=== PATIENT | male | born 1965 | race Caucasian/White ===

== ENCOUNTER 2020-08-28 09:14 | Outpatient (REF) | payer OTHER, SELFPAY ==
[2020-08-28 10:12] LABS: MANUAL DIFF FLAG NO
[2020-08-28 10:20] LABS: Basophils Percent Auto 0.6 % (0-2); Eosinophils Absolute Auto 0.2 X10*3/uL (0.0-0.4); Eosinophils Percent Auto 2.5 % (0-4); Hematocrit 44.1 % (42-52); Hemoglobin 14.6 g/dl (14.0-18.0); Imm Gran Abs Auto 0.02 X10*3/uL (0.00-0.03); Imm Gran Pct Auto 0.3 % (0.0-0.4); Lymphocytes Absolute Auto 1.7 X10*3/uL (1.2-4.9); Lymphocytes Percent Auto 26.6 % (20-40); Mean Corpuscular HGB Conc 33.1 g/dl (31.0-36.0); Mean Corpuscular Hemoglobin 30.2 pg (27.0-33.0); Mean Corpuscular Volume 91.1 fL (80-98); Mean Platelet Volume 9.9 fL (9.4-12.4); Monocytes Absolute Auto 0.5 X10*3/uL (0.1-1.2); Monocytes Percent Auto 7.6 % (2-11); Neutrophils Percent Auto 62.4 % (45-73); Platelet Count 296 X10*3/uL (160-400); Red Blood Count 4.84 X10*6/uL (4.60-5.80); Red Cell Distribution Width 12.4 % (11.0-16.0); White Blood Count 6.5 X10*3/uL (4.8-10.8)
[2020-08-28 10:55] LABS: Alanine Aminotransferase 19 U/L (0-40); Albumin Level 4.4 g/dL (3.5-5.0); Alkaline Phosphatase 57 U/L (39-117); Anion Gap 11 (12-20); Aspartate Amino Transferase 18 U/L (5-37); Bilirubin Total 1.7 mg/dL (0.0-1.0); Blood Urea Nitrogen 21 mg/dL (9-16); Calcium 9.5 mg/dL (8.4-10.2); Carbon Dioxide 26 mmol/L (22-29); Chloride 105 mmol/L (96-108); Cholesterol 179 mg/dL; Estimated Glomerular Filt Rate > 60; Glucose Random 110 mg/dL (60-115); HDL Cholesterol 84 mg/dL; LDL Cholesterol Calculated 86 mg/dl; Potassium 4.4 mmol/L (3.3-5.1); Sodium 138 mmol/L (135-145); Total Protein 6.2 g/dL (6.5-8.0); Triglycerides 48 mg/dL
[2020-08-28 11:05] LABS: ~HepC Num1 0.06 S/CO (0.00-0.79); ~Hepatitis C Antibody Nonreactive (Nonreactive)
[2020-08-28 11:14] LABS: Prostate Specific Antigen 0.44 ng/mL (<0.05-4.0)
== END 2020-08-28 09:15 | disposition home or self-care (01) ==
LOC: HO.LAB 09:14
PROVIDERS: PCP Internal Medicine; Visit Provider Internal Medicine
DX: Z00.00 Encounter for general adult medical examination without abnormal findings (principal); Z12.5 Encounter for screening for malignant neoplasm of prostate
CPT/HCPCS: 36415; 80053; 80061; 84153; 85025; 86803

== ENCOUNTER 2020-11-01 07:52 | Emergency (ER) | payer OTHER, SELFPAY ==
[2020-11-01 07:59] VITALS: BP 154/97; PULSE 77; RESP 18; TEMP 35.7; O2SAT 99; BMI 27.3
--- NOTE | 2020-11-01 08:31 | ED_ITS ---
HPI - Skin/Abscess/Foreign Bdy General Chief complaint: Skin/Abscess/Foreign Body Stated complaint: Stung by a couple of bees Time Seen by Provider: 11/01/20 08:14 Source: patient and family ( at bedside) Mode of arrival: ambulatory Limitations: no limitations History of Present Illness MD complaint: rash Onset (ago): day(s) (Since yesterday) Tetanus up to date: unsure Location: LUE (Forearm) and RUE (Forearm) Severity: moderate Quality: pruritic Relieving factors: none Context: witnessed insect bite (Stung by yellow jacket bees) Associated symptoms: itching Treatments prior to arrival: Benadryl Related Data Previous Rx's Medication Instructions Recorded diphenhydramine HCl 25 mg tablet 50 mg PO Q6H PRN #20 tab 11/01/20 (Benadryl Allergy) doxycycline hyclate 100 mg tablet 100 mg PO BID 10 Days #20 tab 11/01/20 famotidine 20 mg tablet (Pepcid) 20 mg PO BID #20 tab 11/01/20 hydrocortisone 2.5 % topical 1 appl TOPICAL QD-TID PRN #454 g 11/01/20 ointment prednisone 20 mg tablet 40 mg PO DAILY 5 Days #10 tab 11/01/20 Allergies Allergy/AdvReac Type Severity Reaction Status Date / Time bee pollen [BEE STINGS] Allergy Intermediate HIVES Verified 11/01/20 07:59 fire ant [FIRE ANT] Allergy Intermediate HIVES Verified 11/01/20 07:59 Penicillins [PENICILLINS] Allergy Unknown HIVES Verified 11/01/20 07:59 Review of Systems Review of Systems: Constitutional : No Fever, No Chills , no body aches, no recent illness Head/Face: No facial swelling, No facial redness ENT/Mouth : No oral/throat swelling, No Hoarseness, No Swallowing Difficulty Eyes: No Eye Pain, No Swelling, No Redness Cardiovascular : No Chest Pain, No SOB, No palpitations Respiratory : No Cough, No Sputum, No Wheezing, No Smoke Exposure, No Dyspnea Gastrointestinal : No Nausea, No Vomiting, No Diarrhea, No abdominal Pain Genitourinary : No Dysuria, No Urinary Frequency, No Hematuria Musculoskeletal : No joint pain, No Myalgias, No Joint Swelling Skin : No Skin Lesions, positive rash Neuro : No Weakness, No Numbness, No Headache, No dizziness, No tingling Psych : No Anxiety/Panic, No Depression Heme/Lymph: No Bruising, No Lymphadenopathy Endocrine : No Polyuria, No Polydipsia Denies changes in lotions or detergents. Denies new medications or any changes in medications. Denies drainage from rash. Denies any recent sick contacts or recent travel. Yes all other systems are reviewed and are negative PMFSH Past Medical History Attestation statement: The following information was validated with the patient. Medical History No known health problems Social History Social History Advance Directives: No Advance Directives Information Provided: No Physical Exam Vital Signs: Vital Signs: Last Vital Signs Temp 96.2 F L 11/01/20 07:59 Pulse 77 11/01/20 07:59 Resp 18 11/01/20 07:59 BP 154/97 H 11/01/20 07:59 Pulse Ox 99 11/01/20 07:59 Body Mass Index 27.3 vital signs have been reviewed as normal and appeared to be correct. Blood pressure hypertensive 154/97. Heart rate normal. Respiration rate normal. Temperature normal. Oxygen saturation normal. Appearance: Alert. Oriented X3. No acute distress. Head: Normal external exam. Normocephalic. Eyes: PERRLA. EOMI. Conjunctiva and sclera normal. Eyelids normal. ENT: Pharynx normal. Uvula midline. Moist mucous membranes. No trismus noted. No drooling noted. No muffled voice noted. Neck: Normal inspection. Neck supple. FROM. No adenopathy. No meningeal signs. CVS: Normal heart rate and rhythm. Heart sound normal. No murmurs noted. Pulses normal throughout. Respiratory: No respiratory distress. Painless inspiration. Breath sounds normal. No wheezes/rales/rhonchi noted. Chest nontender. No accessory muscle usage noted or decreased air movement noted. Abdomen: Soft and nontender. Nondistended. No guarding. No rigidity. Bowel sounds normal in all 4 quadrants. No distention noted. No organomegaly noted. No visible injury noted. No rebound tenderness. Negative Rovsing sign. Negative obturator's sign. Negative psoas sign. Negative Ledbetter sign. Back: Full range of motion noted. Skin: Skin warm and dry. Normal skin color. Normal skin turgor. No lacerations noted. Patient is noted to have 3 bee stings 2 to the left arm 1 to the right arm with mild soft tissue swelling and urticaria a consistent with allergic reaction. Extremities: Extremities exhibit normal range of motion. Extremities nontender. Neuro: Oriented X 3. No motor deficit. No sensory deficit. Reflexes normal. Normal steady gait. Course Course Course Narrative: IMP/Plan: Allergic rxn. Not anaphylaxis. Not sepsis/ infectious etiology. Patient well appearing in no acute distress, breathing easily without throat symptoms. Speaking full sentences, and handling secretions without difficulty. There is no obvious threat to airway. Lungs are CTA in all merritt. No signs of angioedema, stridor, airway compromise, anaphylaxis or anaphylactic shock. Not c/w SSSS/ TEN/ Eryth multiforme/ Castaneda Johnsons. Given HPI and PE - Will watch and observe. If patient continues to be symptom free - will d/c with return precautions. Patient understands and agrees with plan MDM - Skin/Abscess/Foreign Bdy Medical Records Attestation: I reviewed the patient's medical records. Discharge Plan Discharge Clinical Impression: Allergic reaction to bee sting Patient Disposition: Home, Self-Care Instructions: Insect Bite or Sting (ED), Allergies (ED) Prescriptions: New diphenhydramine HCl [Benadryl Allergy] 25 mg tablet 50 mg PO Q6H PRN (Reason: allergic reaction) Qty: 20 RF: 0 famotidine [Pepcid] 20 mg tablet 20 mg PO BID Qty: 20 RF: 0 hydrocortisone 2.5 % ointment 1 appl topical QD-TID PRN (Reason: skin irritation) Qty: 454 RF: 0 prednisone 20 mg tablet 40 mg PO DAILY 5 Days Qty: 10 RF: 0 doxycycline hyclate 100 mg tablet 100 mg PO BID 10 Days Qty: 20 RF: 0 Referrals: Deandre Talbot MD [Primary Care Provider] - 2 days Print Language: Greenlandic
[2020-11-01] MEDS: predniSONE 20 MG TABLET 60 MG PO (08:37)
[2020-11-01] MEDS: Famotidine 20 MG TABLET PO (08:37)
== END 2020-11-01 09:04 | disposition home or self-care (01) ==
PROVIDERS: Emergency Provider Student in an Organized Health Care Education/Training Program; PCP Internal Medicine
DX: T63.441A Toxic effect of venom of bees, accidental (unintentional), initial encounter (principal); L23.9 Allergic contact dermatitis, unspecified cause; Y92.9 Unspecified place or not applicable; X58.XXXA Exposure to other specified factors, initial encounter; Z91.030 Bee allergy status; Z79.899 Other long term (current) drug therapy
CPT/HCPCS: 99283

== ENCOUNTER 2021-09-06 08:57 | Outpatient (REF) | payer OTHER, SELFPAY ==
--- NOTE | ~2021-09-06 | XR_ITS ---
EXAMINATION: XR FOOT, LEFT CLINICAL INFORMATION: Pain COMPARISON: None TECHNIQUE: AP, lateral, and oblique views of the left foot. FINDINGS: Bones of the midfoot are well aligned. No tarsal, metatarsal or phalangeal fracture. Mild hallux valgus deformity of the first toe with mild degenerative changes of the first MTP joint. There is no focal soft tissue swelling of the left foot. No radiopaque foreign body. No gross ankle joint effusion. XR/XR foot LT min 3V IMPRESSION: Mild degenerative changes of the left foot.
== END 2021-09-06 08:58 | disposition home or self-care (01) ==
LOC: HO.HMGCX 08:57
PROVIDERS: PCP Internal Medicine; Visit Provider Physician Assistant
DX: M79.675 Pain in left toe(s) (principal)
CPT/HCPCS: 73630

== ENCOUNTER 2023-04-11 12:16 | Emergency (ER) | payer OTHER, SELFPAY ==
--- NOTE | ~2023-04-11 | XR_ITS ---
EXAMINATION: XR SHOULDER, LEFT CLINICAL INFORMATION: Left shoulder pain, fall. COMPARISON: None available. TECHNIQUE: 3 views of the left shoulder. FINDINGS: Degenerative changes on limited views of the upper thoracic spine. Mild degenerative changes in the acromioclavicular joint with joint space narrowing and hypertrophic change. Glenohumeral alignment is preserved. Small amorphus calcification projects along the inferior aspect of the glenohumeral joint. Similar small calcification projects lateral to the acromion. XR/XR shoulder LT min 2V IMPRESSION: Mild degenerative changes in the acromioclavicular joint. Amorphous calcifications as detailed above are likely related to a chronic/degenerative process such as calcific tendinitis. Additional imaging with CT scan or MRI should be considered for better visualization as these modalities are much more sensitive for detection of fracture or other underlying pathology.
--- NOTE | ~2023-04-11 | XR_ITS ---
EXAMINATION: XR ELBOW, LEFT CLINICAL INFORMATION: Left elbow pain, fall. COMPARISON: None available. TECHNIQUE: AP, lateral, and oblique views of the left elbow. FINDINGS: Alignment preserved. No displaced fracture or dislocation. Joint effusion. XR/XR elbow LT min 3V IMPRESSION: Joint effusion. No displaced fracture. Recommend follow-up images in 10-14 days if fracture is suspected. Additional imaging with CT scan or MRI should be considered for better visualization as these modalities are much more sensitive for detection of fracture or other underlying pathology.
[2023-04-11 12:38] VITALS: BP 166/104; PULSE 73; RESP 19; TEMP 36.6; O2SAT 98; BMI 29.0
--- NOTE | 2023-04-11 12:42 | ED_ITS ---
HPI - Extremity Problem General Chief complaint: Extremity Injury, Upper Stated complaint: L Shoulder Pain Work Injury 04/11/23 Time Seen by Provider: 04/11/23 16:16 Source: patient, RN notes reviewed and old records reviewed Mode of arrival: ambulatory History of Present Illness HPI Narrative: 58-year-old male with no significant past medical history presenting to the ED complaining of left shoulder and left elbow pain s/p mechanical slip and fall on ice around 07:00 this morning. Reports landing on elbow and shoulder, denies head trauma or LOC. Denies taking anticoagulation. Reports limited ROM of arm secondary to pain. Denies numbness/tingling or weakness MD Complaint: extremity pain Related Data Previous Rx's Medication Instructions Recorded acetaminophen 500 mg tablet 500 mg PO Q6H PRN fever or pain 04/11/23 (Tylenol Extra Strength) #14 tabs cyclobenzaprine 5 mg tablet 5 mg PO Q8H PRN pain (scale score 04/11/23 7-10) 5 days #14 tabs lidocaine 5 % topical patch 1 patch topical DAILY PRN pain #30 04/11/23 (Lidoderm) ea naproxen 500 mg tablet 500 mg PO BID PRN pain 10 days #20 04/11/23 tabs Allergies Allergy/AdvReac Type Severity Reaction Status Date / Time bee pollen [BEE STINGS] Allergy Intermediate HIVES Verified 04/11/23 12:38 fire ant [FIRE ANT] Allergy Intermediate HIVES Verified 04/11/23 12:38 Penicillins [PENICILLINS] Allergy Unknown HIVES Verified 04/11/23 12:38 Review of Systems Review of Systems: Constitutional: No Fever, No Chills ENT/Mouth: No Ear Pain, No Nasal Congestion, No sore throat, No Rhinorrhea, No Swallowing Difficulty Cardiovascular: No Chest Pain, No SOB Respiratory: No Cough, No Sputum, No Wheezing Gastrointestinal: No Nausea, No Vomiting, No Diarrhea, No Constipation, No Abdominal pain Musculoskeletal: +joint pain, No Myalgias, +o Joint Swelling Skin: No Skin Lesions, No rash Neuro: No Weakness, No Numbness, No Paresthesias, no headache, no LOC Yes all other systems are reviewed and are negative Constitutional: Constitutional: Reports as per [facility] Past Medical History Attestation statement: The following information was validated with the patient. Source: old records reviewed Onset Date is defined in the Problem List Problems that require an onset date and time if occurred within 24 hrs of arrival to the ED Aortic Dissection and Rupture; Neurologic impairment; Cardiopulmonary Arrest; E ndotracheal Intubation; Insertion or Replacement of Mechanical Circulatory Assist Device Medical History No known health problems Social History Social History Advance Directives: No Advance Directives Information Provided: No Physical Exam Vital Signs: Vital Signs: Last Vital Signs Temp 98.8 F 04/11/23 16:37 Pulse 68 04/11/23 16:37 Resp 18 04/11/23 16:37 BP 154/96 H 04/11/23 17:09 Pulse Ox 98 04/11/23 16:37 O2 Del Method Room Air 04/11/23 16:37 BMI result Body Mass Index 29.0 Const: General: cooperative, healthy appearing and no acute distress Orien tation/consciousness: patient oriented x3 Limitations: no limitations HEENT: Head: Yes normal to inspection and Yes atraumatic Ears: hearing grossly normal bilaterally General nose exam: Normal external nose present Face and sinus: Yes normal facial exam Eyes: General: appearance normal, both eyes and all related structures EOM: EOMs intact bilaterally Neck: Neck: Yes normal visual inspection and Yes no meningeal signs Resp: Effort & Inspection: normal respiratory effort and no respiratory distress Cardio: Rate: regular rate Back/Spine/Pelvis: Other: No midline cervical/thoracic/lumbar spinous tenderness/step-off or deformity Skin: Rashes: no rashes Wounds: no wounds Neuro: General: patient oriented x3, tone normal and no meningeal signs Record Retrieval Specialist nial nerves: Yes CN's II-XII intact bilaterally Gait exam (Neuro): Normal gait present Extrem: Other: Left shoulder without nausea deformity. Mildly tender to palpation to AC joint. Limited ROM secondary to pain. Left elbow with mild swelling. Mildly tender palpation. Limited full extension and flexion secondary to pain. Pronation intact, supination intact up to about 60 degrees Neurovascular intact distally. No erythema or warmth Course Course Course Narrative: RME: 58 yold male presents to the ED for left shoulder and elbow after slipping at work and falling unto left shoulder. patient states no head trauam or on blood thinners. shoulder and eblow xray ordered XR shoulder LT min 2V IMPRESSION: Mild degenerative changes in the acromioclavicular joint. Amorphous calcifications as detailed above are likely related to a chronic/degenerative process such as calcific tendinitis. Additional imaging with CT scan or MRI should be considered for better visualization as these modalities are much more sensitive for detection of fracture or other underlying pathology. XR elbow LT min 3V IMPRESSION: Joint effusion. No displaced fracture. Recommend follow-up images in 10-14 days if fracture is suspected. Additional imaging with CT scan or MRI should be considered for better visualization as these modalities are much more sensitive for detection of fracture or other underlying pathology. > concern for occult radial head fracture. Patient placed in sling and recommended close orthopedic follow-up with repeat imaging. Results discussed with patient including worrisome signs and symptoms and strict return precautions, and when to return to the emergency department. They verbalized understanding and feel safe for discharge at this time. Medications Administered Discontinued Medications Generic Name Dose Route Start Last Admin Trade Name Freq PRN Reason Stop Dose Admin Ketorolac Tromethamine 30 mg 04/11/23 16:43 04/11/23 17:06 Ketorolac Tromethamine 30 Mg/Ml Vial IM 04/11/23 16:44 30 mg ONCE ONE Administration Medical Decision Making Medical Decision Making MDM Narrative: 58-year-old male with no significant past medical history presenting to the ED complaining of left shoulder and left elbow pain s/p mechanical slip and fall on ice around 07:00 this morning. On exam hypertensive likely from pain, NAD, nontoxic appearing, physical exam as noted above. Concern for fracture versus sprain versus tendon/ligamental/MSK or rotator cuff injury. Low suspicion for ICH X-rays ordered in triage Please refer to course for remaining clinical decision making, interpretation of labs/imaging results, and discussions with consultants and/or family members. Differential Diagnosis Differential Diagnoses: The differential diagnosis associated with the presentation includes As above Independent Interpretation I performed an independent interpretation of an: Plain X-Ray Radiology Impression Discussion of test interpretation with radiology: I have reviewed the radiologist's reading. External Record Review External record reviewed: Inpatient record, Office record, Outpatient record, Prior outpatient labs, Prior outpatient radiology, Primary care record and Outside ED record Tests considered The following testing was considered but not selected: As above Prescription Management I considered prescription management with: Pain Medication Procedures Orthopedic Splinting/Casting Injury #1: Side: left Upper Extremity Injury Location: elbow Upper Extremity Immobilizer: sling/shoulder immobilizer Discharge Plan Discharge Clinical Impression: Effusion of elbow, AC (acromioclavicular) joint arthritis Patient Disposition: Home, Self-Care Instructions: Osteoarthritis (DC) Additional Instructions: Your x-ray shows arthritic changes of your shoulder and joint effusion of her elbow. The joint effusion is concerning for a possible fracture we cannot see at this time You need to wear sling at all times until you see the medical staff specialist. Only take off to shower Ice. Elevate. Flexeril is a muscle relaxer, take at night as it makes you drowsy, do not drive, drink alcohol, or operate machinery while taking it Naproxen as an anti-inflammatory / pain medication, take with food Lidoderm patches are numbing patches, apply to painful area In addition take Tylenol at home If symptoms persist or worsen, pain becomes unbearable, you developed urinary retention or incontinence, or weakness return to the ED Prescriptions: New acetaminophen [Tylenol Extra Strength] 500 mg tablet 500 mg PO Q6H PRN (Reason: fever or pain) Qty: 14 0RF lidocaine [Lidoderm] 5 % adhesive patch,medicated 1 patch topical DAILY MDD remove after 12 hours PRN (Reason: pain) Qty: 30 0RF Rx Instructions: leave on most painful area for up to 12 hrs naproxen 500 mg tablet 500 mg PO BID PRN (Reason: pain) 10 Days Qty: 20 0RF cyclobenzaprine 5 mg tablet 5 mg PO Q8H PRN (Reason: pain (scale score 7-10)) 5 Days Qty: 14 0RF Referrals: [facility] [place] [facility] [Provider Group] - 1 week Deandre Talbot MD [Primary Care Provider] - Interventions: ED Discharge Assessment Last Done: 04/11/23 17:57 Discharge Date/Time: 04/11/23 17:08
[2023-04-11 16:37] VITALS: BP 160/110; PULSE 68; RESP 18; TEMP 37.1; O2SAT 98
[2023-04-11] MEDS: Ketorolac Tromethamine 30 MG/ML VIAL IM (17:06)
[2023-04-11 17:09] VITALS: BP 154/96
== END 2023-04-11 17:08 | disposition home or self-care (01) ==
PROVIDERS: Emergency Provider Student in an Organized Health Care Education/Training Program; PCP Internal Medicine
DX: S59.902A Unspecified injury of left elbow, initial encounter (principal); S49.92XA Unspecified injury of left shoulder and upper arm, initial encounter; W00.0XXA Fall on same level due to ice and snow, initial encounter; Y93.9 Activity, unspecified; Y92.9 Unspecified place or not applicable; Y99.0 Civilian activity done for income or pay
CPT/HCPCS: 73030; 73080; 96372; 99283; 99284; J1885